=== PATIENT | female | born 1960 | race Caucasian/White ===

== ENCOUNTER 2016-08-17 07:49 | Observation (INO) | payer OTHER ==
[~2016-08-17] VITALS: Ht 162.6 cm; Wt 43.1 kg
[~2016-08-17 07:49] MED LIST: ALBU8.5H2 IH; ALPR2TAB2 PO; AZIT-21 PO; BUDE10.2 IH; BUDE10.22 IH; CEFD300C3 PO; CEPH500C PO; CIPR-225 PO; CLON1TAB3 PO; CLON2TAB2 PO; CYCL10TA9 PO; DIVA500T15 PO; DULO60CA6 PO; GABA-488 PO; GABA-490 PO; GABAPENTIN; GUAI118L10 PO; GUAN2TAB12 PO; HYDR-3720 PO; HYDR-3816 PO; HYDR-757 PO; HYOS0.1216 PO; IBP600T1 PO; IBUP800T26 PO; LEVO500T69 PO; LEVO500T80 PO; MIRT30TA6 PO; MIRT30TA8 PO; NAPR-243 PO; OXYC10TA7 PO; PANT20TA3 PO; PANT40TA2 PO; PRD20T PO; PRED20TA PO; PREG25CA PO; RISP1TAB3 PO; SUCR1ORA5 PO; TIOT18CA2 IH; TIZA4CAP PO; TRAM-21 PO
[2016-08-17] MEDS ORDERED: NS IV 1000 ML 1,000 ML IV ONE ×2 (08:08→09:41)
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
[2016-08-17] MEDS ORDERED: ONDANSETRON 4 MG/2 ML (SDV) Z0FRAN IVP ONE ×3 (08:45→11:30)
--- NOTE | 2016-08-17 08:59 | Diagnostic Imaging Report ---
INDICATION: Cough and congestion. PA and lateral views of the chest are obtained with comparison made study of 02/15/2016. FINDINGS: Overall heart size and pulmonary vascularity are within normal limits. There is no pneumothorax or consolidation. Multiple old bilateral rib fractures are stable in appearance. IMPRESSION: No acute abnormality or adverse change is identified. Dictated by: Dictated on workstation # [id number]
[2016-08-17 09:03] LABS: BASOPHILS % (AUTO) 0 % (0-10); EOSINOPHILS % (AUTO) 0 % (0-10); LYMPHOCYTES # (AUTO) 1.6 X 10^3 (1.0-4.0); LYMPHOCYTES % (AUTO) 12 % (12-44); MEAN CORPUSCULAR HEMOGLOBIN 29 PG (25-34); MEAN CORPUSCULAR HGB CONC 33 G/DL (32-36); MEAN CORPUSCULAR VOLUME 88 FL (80-99); MEAN PLATELET VOLUME 10.3 FL (7.4-10.4); MONOCYTES # (AUTO) 0.9 X 10^3 (0.0-1.0); MONOCYTES % (AUTO) 7 % (0-12); NEUTROPHILS # (AUTO) 10.4 X 10^3 (1.8-7.8); NEUTROPHILS % (AUTO) 80 % (42-75); PLATELET COUNT 342 10^3/uL (130-400); RED BLOOD COUNT 5.37 10^6/uL (4.35-5.85); RED CELL DISTRIBUTION WIDTH 14.5 % (10.0-14.5)
[2016-08-17 09:31] LABS: ALANINE AMINOTRANSFERASE 21 U/L (0-55); ALBUMIN 4.1 G/DL (3.2-4.5); ANION GAP 12 MMOL/L (5-14); ASPARTATE AMINO TRANSFERASE 23 U/L (5-34); BILIRUBIN,TOTAL 0.5 MG/DL (0.1-1.0); BLOOD UREA NITROGEN 16 MG/DL (7-18); BUN/CREATININE RATIO 19; CALCIUM 9.7 MG/DL (8.5-10.1); CARBON DIOXIDE 24 MMOL/L (21-32); CHLORIDE 104 MMOL/L (98-107); CREATININE SERUM 0.85 MG/DL (0.60-1.30); GFR ESTIMATED > 60; GLUCOSE 96 MG/DL (70-105); POTASSIUM 3.9 MMOL/L (3.6-5.0); SODIUM 140 MMOL/L (135-145); TOTAL PROTEIN 7.4 G/DL (6.4-8.2); hs C REACTIVE PROTEIN 0.43 MG/DL (0.00-0.50)
[2016-08-17 10:24] LABS: KETONES,URINE 3+ (NEGATIVE); LEUKOCYTE ESTERASE ,URINE 2+ (NEGATIVE); NITRITE,URINE NEGATIVE (NEGATIVE); PH,URINE 6 (5-9); PROTEIN,URINE 2+ (NEGATIVE); UROBILINOGEN,URINE 4 MG/DL (NORMAL)
[2016-08-17 10:39] LABS: BILIRUBIN,URINE 1+ (NEGATIVE)
[2016-08-17] MEDS ORDERED: cefTRIAXone INJECTION 1,000 MG in NORMAL SALINE (BAXTER MINI) 50 ML IV ONE (11:15)
[2016-08-17 13:00] VITALS: BP 121/83
[2016-08-17] MEDS ORDERED: ONDANSETRON 4 MG/2 ML (SDV) Z0FRAN IV PRN (13:00)
[2016-08-17] MEDS ORDERED: CATHETER FLUSH 10 ML SYR IV PRN (13:00)
[2016-08-17] MEDS: NS IV 1000 ML 1,000 ML IV SCH ×2 (13:44→23:52)
[2016-08-17] MEDS ORDERED: MUCINEX PO (14:33)
[2016-08-17] MEDS ORDERED: METO10TA3 PO (14:33)
[2016-08-17] MEDS ORDERED: HYDR-700 PO (14:33)
[2016-08-17] MEDS ORDERED: MIRT30TA6 PO (14:33)
[2016-08-17] MEDS ORDERED: MULT-884 PO (14:33)
[2016-08-17] MEDS ORDERED: PANT40TA3 PO (14:33)
[2016-08-17] MEDS ORDERED: TR1C15 TP (14:33)
[2016-08-17 16:48] VITALS: BP 123/66
[2016-08-17] MEDS: clonazePAM 1 MG (KlonoPIN) TAB PO SCH ×2 (17:40→21:25)
[2016-08-17 20:17] VITALS: BP 131/74
[2016-08-18 00:30] VITALS: BP 137/76
[2016-08-18 04:30] VITALS: BP 119/66
[2016-08-18 05:05] LABS: BASOPHILS % (AUTO) 0 % (0-10); EOSINOPHILS % (AUTO) 0 % (0-10); LYMPHOCYTES # (AUTO) 1.6 X 10^3 (1.0-4.0); LYMPHOCYTES % (AUTO) 17 % (12-44); MEAN CORPUSCULAR HEMOGLOBIN 29 PG (25-34); MEAN CORPUSCULAR HGB CONC 33 G/DL (32-36); MEAN CORPUSCULAR VOLUME 90 FL (80-99); MEAN PLATELET VOLUME 10.1 FL (7.4-10.4); MONOCYTES # (AUTO) 0.8 X 10^3 (0.0-1.0); MONOCYTES % (AUTO) 8 % (0-12); NEUTROPHILS # (AUTO) 6.8 X 10^3 (1.8-7.8); NEUTROPHILS % (AUTO) 74 % (42-75); PLATELET COUNT 271 10^3/uL (130-400); RED BLOOD COUNT 4.43 10^6/uL (4.35-5.85); RED CELL DISTRIBUTION WIDTH 14.4 % (10.0-14.5); WHITE BLOOD COUNT 9.2 10^3/uL (4.3-11.0)
[2016-08-18 05:30] LABS: ALANINE AMINOTRANSFERASE 18 U/L (0-55); ALBUMIN 3.4 G/DL (3.2-4.5); ANION GAP 10 MMOL/L (5-14); ASPARTATE AMINO TRANSFERASE 26 U/L (5-34); BILIRUBIN,TOTAL 0.4 MG/DL (0.1-1.0); BLOOD UREA NITROGEN 9 MG/DL (7-18); BUN/CREATININE RATIO 13; CALCIUM 8.5 MG/DL (8.5-10.1); CARBON DIOXIDE 22 MMOL/L (21-32); CHLORIDE 111 MMOL/L (98-107); CREATININE SERUM 0.68 MG/DL (0.60-1.30); GFR ESTIMATED > 60; GLUCOSE 70 MG/DL (70-105); POTASSIUM 3.9 MMOL/L (3.6-5.0); SODIUM 143 MMOL/L (135-145); TOTAL PROTEIN 6.1 G/DL (6.4-8.2)
[2016-08-18 05:41] LABS: BAND NEUTROPHILS 0 %; BASOPHILS % (MANUAL) 1 %; EOSINOPHILS % (MANUAL) 1 %; LYMPHOCYTES % (MANUAL) 12 %; NEUTROPHILS % (MANUAL) 81 %
[2016-08-18 08:00] VITALS: BP 127/68
[2016-08-18] MEDS ORDERED: cefTRIAXone 1 GM/NS 50 ML IVPB IV SCH ×2 (09:00)
[2016-08-18] MEDS: NS IV 1000 ML 1,000 ML IV SCH (09:00)
[2016-08-18] MEDS: clonazePAM 1 MG (KlonoPIN) TAB PO SCH (09:53)
[2016-08-18] MEDS ORDERED: CIPR-225 PO (10:49)
--- NOTE | 2016-08-18 10:55 | Discharge Instructions ---
Discharge [facility] Discharge Medications New, Converted or Re-Newed RX: Transmitted to Pharmacy New Medications: Ciprofloxacin HCl (Cipro) 500 Mg Tablet 500 MG PO BID #10 Ref 0 TAB Continued Medications: Budesonide/Formoterol Fumarate (Symbicort 160-4.5 Mcg Inhaler) 10.2 Gm Hfa.aer.ad 2 PUFF IH BID INHALER Clonazepam (Clonazepam) 1 Mg Tablet 1 MG PO QID TAB Hydroxyzine HCl (Hydroxyzine HCl) 25 Mg Tablet 25 MG PO TID PRN ITCHING Hyoscyamine Sulfate (Hyoscyamine Sulfate) 0.125 Mg Tablet 0.125 MG PO BID LAST FILLED 06/11/16 #90 TAB Metoclopramide HCl (Metoclopramide HCl) 10 Mg Tablet 10 MG PO DAILY LAST FILLED 06/09/16 #60 Mirtazapine (Mirtazapine) 30 Mg Tablet 15-30 MG PO HS TAKES 1/2-1 OF A (30 MG) TABLET PRN SLEEP Multivits,Ca,Minerals/Iron/FA (Women's Daily Caplet) 1 Each Tablet 1 TAB PO DAILY TAB Pantoprazole Sodium (Pantoprazole Sodium) 40 Mg Tablet.dr 40 MG PO DAILY Risperidone (Risperidone) 1 Mg Tablet 1 MG PO BID TAB Tiotropium [place] (Spiriva) 1 Inh Aerp 1 CAP IH DAILY INHALER Triamcinolone Acet (Triamcinolone Acetonide) 15 Gm Cr TP BID PRN ITCHING ([Mucinex]) 1 TAB PO DAILY Patient Instructions Goal/Follow Up Appt: [place] 08/28 at 8:20 at [facility] Patient Instructions: Start with clear liquids at home. You can advance your diet if you are not vomiting or nauseated. Return to The Hospital For: dizziness, decreased urination Activity & Diet Discharge Diet: No Restrictions Activity as Tolerated: Yes Copy Copies To 1: ELIZ SALES APRN, MD Aug 18, 2016 10:55
--- NOTE | 2016-08-18 10:57 | Short Stay Summary ---
HPI History of Present Illness: Patient presented to ER with complaints of mild cough and fever, states she also cannot keep anything down for the past few days. Tactile fever and chills. Has had nausea and vomiting as well. She was treated with IVF and antiemetics in ER, but she continue to vomit and so was admitted for observation for 24h as well as continued IVF administration. Source: patient Exam Limitations: no limitations Date seen by provider: Aug 18, 2016 Attending Physician Eliz Hendrix MD PCP [facility] Consult Date of Admission Aug 17, 2016 at 11:55 am Home Medications Home Medications Reviewed patient Home Medication Reconciliation Form Allergies Coded Allergies: Penicillins (Unverified Allergy, Unknown, 02/17/16) codeine (Unverified Allergy, Unknown, 02/16/15) BGE-Dgtyva-Zkmhtr Hx Patient Social History Alcohol Use: Denies Use Recreational Drug Use: No Smoking Status: Former Smoker Former smoker/When Quit: Oct 09, 2014 Type Used: Cigarettes Recent Foreign Travel: No Contact w/other who traveled: No Recent Hopitalizations: No Recent Infectious Disease Expo: No Physical Abuse Screen: No Sexual Abuse: No Immunizations Up To Date Tetanus Booster (TDap): Less than 5yrs Date of Pneumonia Vaccine: Jun 02, 2012 Date of Influenza Vaccine: May 20, 2016 Family Medical History Significant Family History: No Pertinent Family Hx Family History: DIVERTICULITIS G8 BROTHER G8 SISTER FH: diverticulitis FH: ovarian cancer 19 MOTHER (OVARIAN AND BREAST CANCER) Hypertension 19 MOTHER DAUGHTER OVARIAN Respiratory disorder 19 MOTHER (EMPHYSEMA AND COPD) Review of Systems ([facility]) Constitutional: no symptoms reported All Other Systems Reviewed Negative Unless Noted: Yes Physical Exam-([facility]) Physical Exam Vital Signs VS - Last 72 Hours, by Label 08/17/16 08/17/16 08/17/16 08/17/16 08:24 12:40 13:00 16:48 Temp 97.9 97.9 98.6 99.1 Pulse 102 90 90 95 Resp 20 18 18 18 B/P 131/99 121/83 123/66 Pulse Ox 95 95 93 90 O2 Delivery Room Air Room Air 08/17/16 08/17/16 08/18/16 08/18/16 20:17 20:30 00:30 04:30 Temp 99.6 98.9 99.1 Pulse 86 96 84 Resp 18 18 20 B/P 131/74 137/76 119/66 Pulse Ox 94 92 94 O2 Delivery Room Air Room Air Nasal Cannula Nasal Cannula O2 Flow Rate 2.00 2.00 08/18/16 08/18/16 08:00 09:00 Temp 98.9 Pulse 89 Resp 18 B/P 127/68 Pulse Ox 91 O2 Delivery Nasal Cannula Room Air O2 Flow Rate 1.00 Capillary Refill : Less Than 3 Seconds General Appearance: WD/WN no apparent distress HEENT: PERRL/EOMI normal ENT inspection pharynx normal Neck: non-tender full range of motion supple normal inspection Respiratory: lungs clear normal breath sounds no respiratory distress no accessory muscle use Cardiovascular: regular rate, rhythm no edema no gallop no JVD no murmur Gastrointestinal: normal bowel sounds non tender soft no organomegaly Back: normal inspection Extremities: normal range of motion non-tender normal inspection no pedal edema no calf tenderness normal capillary refill 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 Her vomiting gradually abated overnight. She was able to tolerate clear liquids the day of discharge and requested release from the hospital. She will follow up with her PCP for further care. Lola to finish the course of abx for her UTI. Clinical Quality Measures DVT/VTE Risk/Contraindication: Risk Factor Score Per Nursin RFS Level Per Nursing on Admit: 1=Low/No VTE PPX Copy Copies To 1: ELIZ SALES APRN, MD Aug 18, 2016 10:57
[2016-08-18 12:16] VITALS: BP 127/68
== END 2016-08-18 10:49 | disposition home or self-care (01) ==
LOC: EDUNIT# 07:49 → ER 07:51 → 4TH 11:55 → UNDOADMOB 11:55 → 4TH 12:30 → UNDODISOB 08-18 12:28
PROVIDERS: ADMIT Pediatrics; ATTEND Pediatrics
DX: R11.2 Nausea with vomiting, unspecified (principal); N39.0 Urinary tract infection, site not specified; J44.9 Chronic obstructive pulmonary disease, unspecified; K21.9 Gastro-esophageal reflux disease without esophagitis
CPT/HCPCS: 36415; 71020; 80053; 81000; 85007; 85025; 85027; 86141; 87088; 96361; 96365; 96375; 96376; G0378

== ENCOUNTER 2016-10-18 14:42 | Day surgery (SDC) | payer MEDICARE, OTHER ==
[~2016-10-18] VITALS: Ht 160 cm; Wt 37.2 kg
[~2016-10-18 14:42] MED LIST changes: +HYDR-700 PO; +METO10TA3 PO; +MUCINEX PO; +MULT-884 PO; +PANT40TA3 PO; +TR1C15 TP
[2016-10-18] MEDS ORDERED: ONDANSETRON 4 MG/2 ML (SDV) Z0FRAN IVP ONE (16:00)
[2016-10-18] MEDS ORDERED: LACTATED RINGERS 1,000 ML IV ONE (16:00)
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
[2016-10-18 16:29] LABS: BASOPHILS % (AUTO) 0 % (0-10); EOSINOPHILS % (AUTO) 0 % (0-10); LYMPHOCYTES # (AUTO) 2.1 X 10^3 (1.0-4.0); LYMPHOCYTES % (AUTO) 16 % (12-44); MEAN CORPUSCULAR HEMOGLOBIN 28 PG (25-34); MEAN CORPUSCULAR HGB CONC 33 G/DL (32-36); MEAN CORPUSCULAR VOLUME 86 FL (80-99); MEAN PLATELET VOLUME 10.1 FL (7.4-10.4); MONOCYTES % (AUTO) 7 % (0-12); NEUTROPHILS % (AUTO) 76 % (42-75); PLATELET COUNT 331 10^3/uL (130-400); RED BLOOD COUNT 5.59 10^6/uL (4.35-5.85); RED CELL DISTRIBUTION WIDTH 14.3 % (10.0-14.5); WHITE BLOOD COUNT 13.2 10^3/uL (4.3-11.0)
[2016-10-18 16:51] LABS: ALANINE AMINOTRANSFERASE 20 U/L (0-55); ALBUMIN 4.1 G/DL (3.2-4.5); AMYLASE 152 U/L (25-125); ANION GAP 11 MMOL/L (5-14); ASPARTATE AMINO TRANSFERASE 16 U/L (5-34); BILIRUBIN,TOTAL 0.5 MG/DL (0.1-1.0); BLOOD UREA NITROGEN 13 MG/DL (7-18); BUN/CREATININE RATIO 15; CARBON DIOXIDE 29 MMOL/L (21-32); CHLORIDE 103 MMOL/L (98-107); CREATININE SERUM 0.88 MG/DL (0.60-1.30); GFR ESTIMATED > 60; GLUCOSE 92 MG/DL (70-105); LIPASE 17 U/L (8-78); POTASSIUM 3.8 MMOL/L (3.6-5.0); SODIUM 143 MMOL/L (135-145); TOTAL PROTEIN 7.6 G/DL (6.4-8.2)
[2016-10-18] MEDS ORDERED: IOHEXOL 350 MG/ML 100 ML (OMNIPAQUE 350) VIAL IV ONE (17:00)
[2016-10-18] MEDS ORDERED: NS 100 ML (IVPB) BAG IV ONE (17:00)
[2016-10-18 19:05] VITALS: BP 114/82
--- NOTE | 2016-10-18 19:09 | Diagnostic Imaging Report ---
INDICATION: Nausea for several months, generalized abdominal pain. DISCUSSION: AP view of the chest and supine and upright views of the pelvis were obtained, comparison with chest x-ray 08/17/2016. Old bilateral rib fractures are stable. Stable normal heart size. No focal consolidation, pleural fluid, or pneumothorax. No pneumatosis or pneumoperitoneum. Unremarkable nonobstructive bowel gas pattern. No acute osseous abnormality identified. IMPRESSION: 1. Negative chest. 2. Normal bowel gas pattern. Dictated by: Dictated on workstation # [id number]
--- NOTE | 2016-10-18 19:16 | Diagnostic Imaging Report ---
PROCEDURE: CT abdomen and pelvis with contrast. TECHNIQUE: Multiple contiguous axial images were obtained through the abdomen and pelvis after administration of intravenous contrast. INDICATION: Nausea and vomiting for several months. COMPARISON: 02/17/2016. DISCUSSION: Patchy groundglass opacities within the left lung base are concerning for pneumonia. There appears to be solid debris within the distal esophagus, incompletely viewed. The esophageal mass or stricture cannot be excluded. Recommend clinical correlation. The pancreas, spleen, liver, and adrenal glands are unremarkable. The gallbladder is not visualized, likely surgically absent. Kidneys appear within normal limits bilaterally. The abdominal aorta is normal in caliber. There are multiple thickwalled nondilated small bowel loops present diffusely throughout the abdomen which is nonspecific though likely representing enteritis. Mild constipation is noted. No obstruction, pneumatosis, pneumoperitoneum. No ascites or pathologically enlarged lymph nodes are identified. No acute osseous abnormality identified. IMPRESSION: 1. Nondilated thickwalled small bowel loops, possible enteritis. 2. There appears to be ingested food lodged within the distal esophagus which is incompletely viewed. An underlying esophageal mass or stricture cannot be excluded. Recommend direct visualization and clinical correlation. 3. Patchy opacities within the left lung base, concerning for pneumonia. 4. Constipation. Dictated by: Dictated on workstation # [id number]
[2016-10-18 19:19] LABS: BILIRUBIN,URINE NEGATIVE (NEGATIVE); KETONES,URINE NEGATIVE (NEGATIVE); LEUKOCYTE ESTERASE ,URINE 2+ (NEGATIVE); NITRITE,URINE NEGATIVE (NEGATIVE); PH,URINE 7 (5-9); PROTEIN,URINE 2+ (NEGATIVE); UROBILINOGEN,URINE 1 MG/DL (NORMAL)
[2016-10-18 21:00] VITALS: BP 126/70
[2016-10-18] MEDS ORDERED: ONDANSETRON 4 MG/2 ML (SDV) Z0FRAN IV PRN (22:30)
[2016-10-18] MEDS: NS W/KCL 20 MEQ/L 1,000 ML IV SCH (22:35)
[2016-10-18] MEDS ORDERED: cefTRIAXone 1 GM (ROCEPHIN) VIAL ONE (22:42)
[2016-10-18] MEDS ORDERED: NS (IVPB) 50 ML ONE (22:42)
[2016-10-18] MEDS ORDERED: cefTRIAXone INJECTION 1,000 MG in NS (IVPB) 50 ML IV SCH (22:43)
[2016-10-18] MEDS: METOCLOPRAMIDE INJ 10 MG/2 ML (REGLAN) IV SCH ×2 (23:42→23:43)
[2016-10-19] VITALS: BP 101/63
[2016-10-19] MEDS ORDERED: LORazepam INJ 2 MG/ML (ATIVAN) VIAL IVP PRN (00:15)
[2016-10-19] MEDS ORDERED: PROMETHAZINE INJ 25 MG/ML (PHENERGAN) AMP IVP PRN (00:15)
[2016-10-19] MEDS ORDERED: GLUCAGON EMERGENCY 1 MG/KIT IJ ONE (00:15)
[2016-10-19 04:00] VITALS: BP 107/61
[2016-10-19 05:19] LABS: BASOPHILS % (AUTO) 0 % (0-10); EOSINOPHILS % (AUTO) 1 % (0-10); LYMPHOCYTES % (AUTO) 28 % (12-44); MEAN CORPUSCULAR HEMOGLOBIN 29 PG (25-34); MEAN CORPUSCULAR HGB CONC 33 G/DL (32-36); MEAN CORPUSCULAR VOLUME 88 FL (80-99); MEAN PLATELET VOLUME 10.3 FL (7.4-10.4); MONOCYTES # (AUTO) 0.5 X 10^3 (0.0-1.0); MONOCYTES % (AUTO) 8 % (0-12); NEUTROPHILS # (AUTO) 4.3 X 10^3 (1.8-7.8); NEUTROPHILS % (AUTO) 63 % (42-75); PLATELET COUNT 281 10^3/uL (130-400); RED BLOOD COUNT 4.53 10^6/uL (4.35-5.85); RED CELL DISTRIBUTION WIDTH 14.2 % (10.0-14.5); WHITE BLOOD COUNT 6.9 10^3/uL (4.3-11.0)
[2016-10-19] MEDS: NS W/KCL 20 MEQ/L 1,000 ML IV SCH ×2 (05:32→10:59)
[2016-10-19 05:45] LABS: ALANINE AMINOTRANSFERASE 18 U/L (0-55); ALBUMIN 3.2 G/DL (3.2-4.5); ANION GAP 10 MMOL/L (5-14); ASPARTATE AMINO TRANSFERASE 21 U/L (5-34); BILIRUBIN,TOTAL 0.4 MG/DL (0.1-1.0); BLOOD UREA NITROGEN 11 MG/DL (7-18); BUN/CREATININE RATIO 16; CALCIUM 8.8 MG/DL (8.5-10.1); CARBON DIOXIDE 24 MMOL/L (21-32); CHLORIDE 109 MMOL/L (98-107); CREATININE SERUM 0.69 MG/DL (0.60-1.30); GFR ESTIMATED > 60; GLUCOSE 77 MG/DL (70-105); POTASSIUM 4.1 MMOL/L (3.6-5.0); SODIUM 143 MMOL/L (135-145); TOTAL PROTEIN 5.7 G/DL (6.4-8.2)
[2016-10-19 08:00] VITALS: BP 122/73
[2016-10-19] MEDS ORDERED: GABA-490 PO (08:35)
[2016-10-19] MEDS ORDERED: GUAI600T43 PO (08:42)
[2016-10-19] MEDS ORDERED: PROM25TA14 PO (08:42)
[2016-10-19] MEDS ORDERED: PROC10TA PO (08:42)
[2016-10-19] MEDS ORDERED: ALBU2.5V4 IH (08:43)
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
[2016-10-19] MEDS ORDERED: proPOfol 200 MG/20 ML (DIPRIVAN) VIAL IV ONE (09:27)
[2016-10-19] MEDS ORDERED: HURRICAINE EXT TUBE (BENZOCAINE) ONE (09:28)
[2016-10-19] MEDS ORDERED: NS IV 500 ML 500 ML ONE (09:29)
[2016-10-19] MEDS ORDERED: NS IV 500 ML 500 ML IV PRN (09:30)
[2016-10-19] MEDS ORDERED: clonazePAM 1 MG (KlonoPIN) TAB PO PRN (09:45)
[2016-10-19] MEDS ORDERED: RT-ALBUTEROL SULF 2.5 MG/3 ML PRE-MIX VIAL IH PRN (09:45)
[2016-10-19] MEDS ORDERED: HURRICAINE EXT TUBE (BENZOCAINE) XX PRN (10:00)
[2016-10-19] MEDS ORDERED: MIDAZOLAM 2 MG/2 ML (VERSED) VIAL ONE (10:08)
--- NOTE | 2016-10-19 10:23 | Occ Therapy Progress Note ---
Therapy Progress Note Order received for OT eval and treat. Chart review completed. Attempted evaluation at 1020. RN reports pt out of room for endoscopy procedure. Will attempt evaluation this afternoon. HANNAH HER OT Oct 19, 2016 10:23
--- NOTE | 2016-10-19 10:30 | Progress Note-Post Operative ---
Post-Operative Progess Note Pre-Operative Diagnosis food particulate esophagus, intractable nausea vomiting Post-Operative Diagnosis food bolus obstructing distal esophagus, distal esophageal stricture Post-Op Procedure Note Date of Procedure: Oct 19, 2016 Name of Procedure: egd with removal distal espophagus food bolus Procedure Note/Findings see note Anesthesia Type per home companion Estimated blood loss (mL): none Specimen(s) collected none SHAHRZAD MCKEON DO Oct 19, 2016 10:30 am
[2016-10-19] MEDS ORDERED: SUCRALFATE 1 GM (CARAFATE) TAB PO SCH (11:00)
--- NOTE | 2016-10-19 11:44 | Speech Therapy Progress Note ---
Therapy Progress Note Speech pathology consult received and chart reviewed. The speech pathologist visited with the patient's RN prior to completing bedside swallow evaluation. Per RN, the swallow evaluation can be cancelled as the patient's dysphagia was a result of an obstructed distal esophagus with food particles. The speech pathologist recommended a re-consult if signs/symptoms of aspiration are observed. Thank you for this consult. BOYD JOSÉ Oct 19, 2016 11:43
--- NOTE | 2016-10-19 11:52 | OPERATIVE REPORT ---
PROCEDURE PHYSICIAN: SHAHRZAD QUEEN DATE OF PROCEDURE: 10/19/2016 PREOPERATIVE DIAGNOSES: 1. Food particulate in the esophagus. 2. Intractable nausea and vomiting. POSTOPERATIVE DIAGNOSES: 1. Food bolus obstructing distal esophagus. 2. Distal esophageal stricture. PROCEDURES: EGD with removal of distal esophagus food bolus. SURGEON: Dr. Queen. ANESTHESIA: Per PROFESSOR OF MECHANICAL ENGINEERING. ESTIMATED BLOOD LOSS: None. COMPLICATIONS: None. INDICATIONS: The patient is a 56-year-old female who was admitted with intractable nausea and vomiting. A CT scan demonstrated a food bolus in the distal esophagus. She has had previous food bolus stuck before. She understands risks and benefits of the procedure and wishes to proceed with procedure. Consent signed on the chart. PROCEDURE: The patient was taken to the endoscopy suite, placed in left lateral recumbent position. Timeout was performed. The scope was then inserted the mouth down the esophagus, which had a lot of food particulate present. It was white, flaky and multiple small pieces. Using the scope, it was continued be suctioned. Using a net, the food particulate was attempted to be withdrawn after netting it in the esophagus. This was continued be removed with the scope continuing to be reinserted. Larger pieces were then encountered as we went more distally, therefore, a 3 prong grasper was then attempted to be used, but was unable to really grasp any of the pieces of food. The scope was able to be advanced past the larger particulates and then through the GE junction and into the stomach. There was a little bit of a slight stricture present, but the scope was able to be passed without any difficulty. There was lots of edema and swelling in this area as well. The scope was then retracted back into the distal esophagus and the food particulate was then able to be pushed down into the stomach. Once all the particulates were pushed into the stomach, the scope was then advanced into the stomach through the pylorus into the first part of the duodenum, which there was no polyps, masses or ulcerations. The scope was then slowly retracted back to the stomach where it was also retroflexed noting the GE junction seemed to be tight around the scope. There did not appear to be any hiatal hernia. The scope was then returned to its normal position, slowly withdrawn again noting some slight stricture at the distal esophagus, lots of edema and some erythema. The scope was continued to be slowly retracted noting no other foods particulate in the esophagus, slowly retracted until completely removed. The patient tolerated the procedure well without any complications. She was taken to recovery room in stable condition. RECOMMENDATIONS: The patient will be on a Protonix twice a day and Carafate. She will stay on a liquid diet. I would consider patient be evaluated by GI, with one question motility of the esophagus with also stricture. Would recommend repeat scope in 3 to 6 weeks either by GI or myself to reevaluate the area. Job ID: [id number] Dictated Date: 10/19/2016 10:35:21 Brush Polisher Date: 10/19/2016 11:38:37 / lacey
[2016-10-19 12:00] VITALS: BP 130/82
--- NOTE | 2016-10-19 12:49 | Discharge Instructions ---
Discharge [facility] Discharge Medications Continued Medications: Albuterol Sulfate (Albuterol Sulfate) 2.5 Mg/3 Ml Vial.neb 2.5 MG IH Q6H PRN SHORTNESS OF BREATH EA Budesonide/Formoterol Fumarate (Symbicort 160-4.5 Mcg Inhaler) 10.2 Gm Hfa.aer.ad 2 PUFF IH BID INHALER Clonazepam (Clonazepam) 1 Mg Tablet 1 MG PO QID PRN ANXIETY TAB Gabapentin (Gabapentin) 400 Mg Capsule 400 MG PO TID CAP Guaifenesin (Mucinex) 600 Mg Tab.er.12h 600 MG PO DAILY TAB Hyoscyamine Sulfate (Hyoscyamine Sulfate) 0.125 Mg Tablet 0.125 MG PO TID PRN STOMACH UPSET TAB Multivits,Ca,Minerals/Iron/FA (Women's Daily Caplet) 1 Each Tablet 1 TAB PO DAILY TAB Pantoprazole Sodium (Pantoprazole Sodium) 40 Mg Tablet.dr 40 MG PO DAILY LAST FILLED #30 09-04-17 TAB Promethazine HCl (Promethazine Tablet) 25 Mg Tablet 25 MG PO QID PRN NAUSEA TAB Risperidone (Risperidone) 1 Mg Tablet 1 MG PO BID LAST FILLED #60 2-2-17 TAB Tiotropium [place] (Spiriva) 1 Inh Aerp 1 CAP IH DAILY INHALER Triamcinolone Acet (Triamcinolone Acetonide 0.1% Cream) 15 Gm Cr TP BID PRN ITCHING EA Discontinued Medications: Prochlorperazine Maleate (Prochlorperazine Maleate) 10 Mg Tablet 10 MG PO TID PRN NAUSEA TAB Patient Instructions Goal/Follow Up Appt: Follow-up with [place] Otoole on 10/26 at 1:20 pm. Return to The [facility] For: Difficulty swallowing, inability to keep down liquids Activity & Diet Discharge Diet: Liquid Diet (for 3 days, then advance slowly, be sure to chew food very well) Copy Copies To 1: MARY Do BETHANY N MD Oct 19, 2016 12:49 pm
--- NOTE | 2016-10-19 12:50 | Short Stay Summary ---
HPI History of Present Illness: Patient presented to ER with about one week history of sensation of food stuck deep in her chest. She states she has had this happen before and was able to clear it, so she waited for a while to see if it would get better. However, she got worse and she was feeling short of breath and dizzy so she came in. Source: patient Attending Physician Adam Kern MD PCP Ksenia,[facility] Date of Admission Oct 18, 2016 at 7:40 pm Home Medications Home Medications Reviewed patient Home Medication Reconciliation Form Allergies Coded Allergies: Penicillins (Unverified Allergy, Unknown, 02/17/16) codeine (Unverified Allergy, Unknown, 02/16/15) FTD-Tejmpy-Iwbqrd Hx Patient Social History Alcohol Use: Past History Recreational Drug Use: No Smoking Status: Former Smoker Former smoker/When Quit: Jul 13, 2016 Type Used: Cigarettes Recent Foreign Travel: No Contact w/other who traveled: No Recent Hopitalizations: Yes (Sep 2016, UTI ) Recent Infectious Disease Expo: No Physical Abuse Screen: No Sexual Abuse: No Immunizations Up To Date Tetanus Booster (TDap): Less than 5yrs Date of Pneumonia Vaccine: Jun 02, 2012 Date of Influenza Vaccine: May 20, 2016 Past Medical History PMHx: COPD Anxiety Depression PTSD Migraines Recurrent esophageal obstructions with food bolus SurgHx: Tonsillectomy BTL Orthopedic- nerve/tendon damage repair in right fore arm Family Medical History Significant Family History: No Pertinent Family Hx Review of Systems ([facility]) Constitutional: no symptoms reported EENTM: no symptoms reported Respiratory: see HPI Cardiovascular: no symptoms reported Gastrointestinal: abdominal pain Genitourinary: no symptoms reported Musculoskeletal: no symptoms reported Psychiatric/Neurological: Anxiety Depressed Reviewed Test Results Reviewed Test Results Lab Laboratory Tests Test 10/18/16 16:24 10/18/16 19:13 10/19/16 05:00 Range/Units Alanine Aminotransferase (ALT/SGPT) 20 18 0-55 U/L Albumin 4.1 3.2 3.2-4.5 G/DL Alkaline Phosphatase 79 69 40-136 U/L Amylase Level 152 H 25-125 U/L Anion Gap 11 10 5-14 MMOL/L Aspartate Amino Transf (AST/SGOT) 16 21 5-34 U/L BUN/Creatinine Ratio 15 16 Basophils # (Auto) 0.0 0.0 0.0-0.1 10^3/uL Basophils (%) (Auto) 0 0 0-10 % Blood Urea Nitrogen 13 11 7-18 MG/DL Calcium Level 10.0 8.8 8.5-10.1 MG/DL Carbon Dioxide Level 29 24 21-32 MMOL/L Chloride Level 103 109 H 98-107 MMOL/L Creatinine 0.88 0.69 0.60-1.30 MG/DL Eosinophils # (Auto) 0.0 0.0 0.0-0.3 10^3/uL Eosinophils (%) (Auto) 0 1 0-10 % Estimat Glomerular Filtration Rate > 60 > 60 Glucose Level 92 77 70-105 MG/DL Hematocrit 48 40 35-52 % Hemoglobin 15.8 13.0 11.5-16.0 G/DL Lipase 17 8-78 U/L Lymphocytes # (Auto) 2.1 2.0 1.0-4.0 X 10^3 Lymphocytes (%) (Auto) 16 28 12-44 % Mean Corpuscular Hemoglobin 28 29 25-34 PG Mean Corpuscular Hemoglobin Concent 33 33 32-36 G/DL Mean Corpuscular Volume 86 88 80-99 FL Mean Platelet Volume 10.1 10.3 7.4-10.4 FL Monocytes # (Auto) 1.0 0.5 0.0-1.0 X 10^3 Monocytes (%) (Auto) 7 8 0-12 % Neutrophils # (Auto) 10.0 H 4.3 1.8-7.8 X 10^3 Neutrophils (%) (Auto) 76 H 63 42-75 % Platelet Count 331 281 130-400 10^3/uL Potassium Level 3.8 4.1 3.6-5.0 MMOL/L Red Blood Count 5.59 4.53 4.35-5.85 10^6/uL Red Cell Distribution Width 14.3 14.2 10.0-14.5 % Sodium Level 143 143 135-145 MMOL/L Total Bilirubin 0.5 0.4 0.1-1.0 MG/DL Total Protein 7.6 5.7 L 6.4-8.2 G/DL White Blood Count 13.2 H 6.9 4.3-11.0 10^3/uL Urine Amorphous Sediment MOD BANDAR URATES H /LPF Urine Bacteria TRACE /HPF Urine Bilirubin NEGATIVE NEGATIVE Urine Casts NONE /LPF Urine Clarity CLEAR Urine Color YELLOW Urine Crystals PRESENT H /LPF Urine Culture Indicated YES Urine Glucose (UA) NEGATIVE NEGATIVE Urine Ketones NEGATIVE NEGATIVE Urine Leukocyte Esterase 2+ H NEGATIVE Urine Mucus LARGE H /LPF Urine Nitrite NEGATIVE NEGATIVE Urine Protein 2+ H NEGATIVE Urine RBC NONE /HPF Urine RBC (Auto) NEGATIVE NEGATIVE Urine Specific [place] 1.015 L 1.016-1.022 Urine Squamous Epithelial Cells 10-25 H /HPF Urine Urobilinogen 1 NORMAL MG/DL Urine WBC 10-25 H /HPF Urine pH 7 5-[address] abdomen 10/18: "IMPRESSION: 1. Nondilated thickwalled small bowel loops, possible enteritis. 2. There appears to be ingested food lodged within the distal esophagus which is incompletely viewed. An underlying esophageal mass or stricture cannot be excluded. Recommend direct visualization and clinical correlation. 3. Patchy opacities within the left lung base, concerning for pneumonia. 4. Constipation." Physical Exam-([facility]) Physical Exam Vital Signs VS - Last 72 Hours, by Label 10/18/16 10/18/16 10/18/16 10/18/16 15:51 19:05 20:52 21:00 Temp 99.0 98.8 97.0 Pulse 87 84 88 84 Resp 18 18 20 20 B/P 120/94 114/82 126/70 Pulse Ox 96 95 96 O2 Delivery Room Air Room Air 10/19/16 10/19/16 10/19/16 00:00 04:00 08:00 Temp 98.9 98.8 98.2 Pulse 73 87 81 Resp 16 16 20 B/P 101/63 107/61 122/73 Pulse Ox 99 92 93 O2 Delivery Room Air Room Air Room Air Capillary Refill : Less Than 3 Seconds General Appearance: no apparent distress other (thin) Respiratory: lungs clear normal breath sounds Cardiovascular: regular rate, rhythm no murmur Gastrointestinal: normal bowel sounds non tender soft Neurologic/Psychiatric: alert other (flat affect) Skin: normal color warm/dry Short Stay Diagnosis Discharge Diagnosis-Short Stay Admission Diagnosis 1. Esophageal obstruction with food bolus Final Discharge Diagnosis 1. Esophageal obstruction with food bolus- Dr. Queen performed EGD with food bolus removal this am, recommended clear liquid diet for 3 days Conclusion Plan See final discharge diagnosis Clinical Quality Measures DVT/VTE Risk/Contraindication: Risk Factor Score Per Nursin RFS Level Per Nursing on Admit: 2=Moderate Copy Copies To 1: MARY Do BETHANY N MD Oct 19, 2016 12:50 pm
[2016-10-19] MEDS ORDERED: GABAPENTIN 400 MG (NEURONTIN) CAP PO SCH (13:00)
--- NOTE | 2016-10-19 13:26 | Occ Therapy Progress Note ---
Therapy Progress Note Attempted OT evaluation at 1315. Pt in bed, declined to participate in therapy at this time secondary to fatigue. Pt states her throat is hurting and she just wants to take a nap. Will attempt 10/20/16. 1, visit HANNAH HER OT Oct 19, 2016 13:26
[2016-10-19 18:22] VITALS: BP 130/82
[2016-10-19] MEDS ORDERED: RT-ADVAIR HFA 115/21 MCG PER PUFF IH SCH (20:00)
[2016-10-19] MEDS ORDERED: PANTOPRAZOLE 40 MG/10 ML (PROTONIX) VIAL IV SCH (21:00)
[2016-10-19] MEDS ORDERED: risperiDONE 1 MG (RisperDAL) TAB PO SCH (21:00)
[2016-10-20] MEDS ORDERED: MULTIVIT W/MINERALS TAB (THERAGRAN M) PO SCH (07:00)
[2016-10-20] MEDS ORDERED: UMECLIDINIUM BROMIDE (INCRUSE ELLIPTA) 7'S IH SCH (08:00)
[2016-10-20] MEDS ORDERED: PANTOPRAZOLE 40 MG (PROTONIX) TAB PO SCH (09:00)
== END 2016-10-19 16:25 | disposition home or self-care (01) ==
LOC: EDUNIT# 14:42 → ER 14:44 → UNDOADMOB 19:40 → 4TH 19:40 → SDC 21:00 → UNDODISOB 10-19 16:25 → SDC 10-19 16:25
PROVIDERS: ATTEND Family Medicine
DX: T18.128A Food in esophagus causing other injury, initial encounter (principal); K22.2 Esophageal obstruction; E86.0 Dehydration; N39.0 Urinary tract infection, site not specified; J44.9 Chronic obstructive pulmonary disease, unspecified; F43.10 Post-traumatic stress disorder, unspecified; K59.00 Constipation, unspecified; Z79.899 Other long term (current) drug therapy; Z87.891 Personal history of nicotine dependence
CPT/HCPCS: 36415; 74022; 74177; 80053; 81000; 82150; 83690; 85025; 87088; 96361; 96374; 99285; G0378

== ENCOUNTER 2016-11-30 05:49 | Outpatient (CLI) | payer MEDICARE ==
[~2016-11-30] VITALS: Ht 160 cm; Wt 35.8 kg
[~2016-11-30 05:49] MED LIST changes: +ALBU2.5V4 IH; +GUAI600T43 PO; +PROC10TA PO; +PROM25TA14 PO
[2016-11-30] MEDS ORDERED: PROC10TA PO (15:52)
[2016-11-30] MEDS ORDERED: CYPR4TAB PO (15:52)
== END 2016-11-30 15:53 ==
LOC: PREOP 05:49
PROVIDERS: ATTEND Surgery
DX: Z01.818 Encounter for other preprocedural examination (principal); R13.10 Dysphagia, unspecified

== ENCOUNTER 2016-12-01 10:02 | Day surgery (SDC) | payer MEDICARE ==
[~2016-12-01] VITALS: Ht 160 cm; Wt 35.8 kg
[2016-12-01] VITALS (7 sets, daily range): BP systolic 89–133; BP diastolic 36–85
[~2016-12-01 10:02] MED LIST changes: +CYPR4TAB PO
[2016-12-01] MEDS ORDERED: proPOfol 200 MG/20 ML (DIPRIVAN) VIAL IV ONE (10:06)
[2016-12-01] MEDS ORDERED: NS IV 1000 ML 1,000 ML IV STA (10:08)
[2016-12-01] MEDS ORDERED: MIDAZOLAM 2 MG/2 ML (VERSED) VIAL IVP PRN (10:15)
[2016-12-01] MEDS ORDERED: FLUMAZENIL (ROMAZICON) 0.1 MG/ML 5 ML VIAL INJ PRN (10:15)
[2016-12-01] MEDS ORDERED: NALOXONE 0.4 MG/ML 1 ML (NARCAN) VIAL IVP PRN (10:15)
[2016-12-01] MEDS ORDERED: fentaNYL INJECTION 100 MCG/2 ML AMP IVP PRN (10:15)
--- NOTE | 2016-12-01 10:18 | Progress Note-Pre Operative ---
Pre-Operative Progress Note H&P Reviewed The H&P was reviewed, patient examined and no changes noted. Date H&P Reviewed: Dec 01, 2016 Time H&P Reviewed: 10:17 Pre-Operative Diagnosis: dysphagia, esophageal stricture SHAHRZAD MCKEON DO Dec 01, 2016 10:18 am
[2016-12-01] MEDS ORDERED: HURRICAINE EXT TUBE (BENZOCAINE) ONE (10:25)
[2016-12-01] MEDS ORDERED: HURRICAINE EXT TUBE (BENZOCAINE) XX ONE (11:00)
[2016-12-01] MEDS ORDERED: NS (IVPB) 0 ML ONE (11:40)
[2016-12-01] MEDS ORDERED: ceFAZolin 1,000 MG (ANCEF) VIAL ONE (11:40)
[2016-12-01 11:57] LABS: MEAN PLATELET VOLUME 9.9 FL (7.4-10.4); RED BLOOD COUNT 5.11 10^6/uL (4.35-5.85); RED CELL DISTRIBUTION WIDTH 14.8 % (10.0-14.5); WHITE BLOOD COUNT 7.2 10^3/uL (4.3-11.0)
[2016-12-01] MEDS ORDERED: NS IV 1000 ML 1,000 ML ONE (12:04)
--- NOTE | 2016-12-01 12:05 | Discharge Inst-Simple/Standard ---
Discharge Inst-Standard Patient Instructions/Follow Up Plan of Care/Instructions/FU: Follow up with DR. Queen after Dr. Granados's procedure. Activity as Tolerated: Yes Discharge Diet: Other Diet (Clear liquids until gastrotomy tube is placed in. ) TRISTEN BRASWELL APRN Dec 01, 2016 12:04
[2016-12-01 12:09] LABS: PROTHROMBIN TIME PATIENT 12.7 SEC (12.2-14.7)
[2016-12-01] MEDS ORDERED: CLINDAMYCIN INJECTION 300 MG in NS (IVPB) 50 ML IV ONE (12:45)
[2016-12-01] MEDS ORDERED: NS IV 1000 ML 1,000 ML IV SCH (12:45)
--- NOTE | 2016-12-01 13:58 | Progress Note-Post Operative ---
Post-Operative Progess Note Surgeon (s)/Antenna Machine Operator (s) Surgeon SHAHRZAD MCKEON DO Antenna Machine Operator: na Pre-Operative Diagnosis dysphagia, esophageal stricture Post-Operative Diagnosis esophageal stricture Post-Op Procedure Note Date of Procedure: Dec 01, 2016 Name of Procedure Performed: esophagoscopy Description of the Procedure: esophagoscopy visualizing stricture Findings of the Procedure esophageal stricture Anesthesia Type per mda Estimated blood loss (mL): none Specimen(s) collected/removed none SHAHRZAD MCKEON DO Dec 01, 2016 13:58
[2016-12-01] MEDS ORDERED: HEParin (CATH LAB) 2,000 ML IV ONE (14:16)
[2016-12-01] MEDS ORDERED: MIDAZOLAM 5 MG/5 ML (VERSED) VIAL ONE (14:31)
[2016-12-01] MEDS ORDERED: fentaNYL INJECTION 100 MCG/2 ML AMP ONE (14:31)
--- NOTE | 2016-12-01 16:15 | Pre-Op Note & Conscious Sedat ---
Pre-Operative Progress Note H&P Reviewed The H&P was reviewed, patient examined and no changes noted. Date H&P Reviewed: Dec 01, 2016 Time H&P Reviewed: 14:00 Pre-Op Diagnosis: esophagus stricture Conscious Sedation Pre-Proced Time Reviewed: 14:00 ASA Class: 3 Airway Mallampati Classification: ([place] appropriate class) I. II. III, IV Lungs Heart ASA score ASA 1: a normal healthy patient ASA 2: a patient with a mild systemic disease (mid diabetes, controlled hypertension, obesity ASA 3: a patient with a severe systemic disease that limits activity (angina , COPD, prior Myocardial infarction) ASA 4: a patient with an incapacitating disease that is a constant threat to life (CHF, renal failure) ASA 5: a moribund patient not expected to survive 24 hrs. (ruptured aneurysm) ASA 6: a declared brain patient whose organs are being harvested. For emergent operations, add the letter E after the classification Grade 3 Sedation Plan: Analgesia Note The patient is an appropriate candidate to undergo the planned procedure, sedation, and anesthesia. The patient immediately re-assessed prior to indication. DIVYA KAM MD Dec 01, 2016 16:15
--- NOTE | 2016-12-01 16:18 | Radiology Progress Note ---
Progress Note-Radiology Progress Note post distal esophageal dilatation of 12mm for distal esophageal stricture. DIVYA KAM MD Dec 01, 2016 16:18
[2016-12-01] MEDS ORDERED: ceFAZolin 1 GM/NS 50 ML IVPB IV ONE ×2 (16:30)
--- NOTE | 2016-12-01 18:16 | Diagnostic Imaging Report ---
EXAMINATION: Crossing obstruction in the esophagus followed by balloon dilatation under fluoroscopic guidance. INDICATION: Distal esophageal obstruction. The patient has had an upper endoscopy with Dr. Queen for stricture treatment. The scope reached a point of obstruction in the distal esophagus and could not pass further. Current history and physical and other medical records are reviewed prior to the procedure. CONSENT: Informed consent was obtained from the patient. The risks, benefits, potential complications and alternatives were reviewed and all questions answered to the patient's satisfaction. The patient's vital signs, cardiac rhythm, and pulse oximetry with observed throughout the procedure by qualified nursing personnel. Sedation/medications: Versed 4 mg IV, Fentanyl 75 mcg IV for a total sedation time of 1 hour and 15 minutes. Fluoroscopy time utilized is 16 minutes. CONTRAST: 40 cc of Omnipaque 300 was utilized. 300 mg of clindamycin intravenously was administered prior to the procedure. PROCEDURE: Initially, a 5 [place] catheter with a J-wire combination was introduced carefully through the nostril into the esophagus with position of the catheter advanced into the distal esophagus easily. The wire did not pass into the stomach however. Contrast injection in the distal esophagus demonstrates a dilatation of the esophagus with no passage of contrast into the stomach compatible with complete obstruction at the gastroesophageal junction. Over a wire, a 6 [place] sheath was placed, 45 cm length and advanced into the distal esophagus. Then an angled glidewire was utilized with an angled multipurpose 5 [place] catheter and after multiple attempts of negotiating the point of obstruction at the gastroesophageal junction, successful crossing of the obstruction into the stomach was obtained and confirmed with contrast injection. The length of the obstruction is about 4 cm. This was treated with serial balloon angioplasty initially with 8 by 40 balloon and followed by 12 x 40 balloon. After angioplasty to 12 mm, the patient started to complain of pain. At this point she was under conscious sedation. Contrast injection after the balloon angioplasty is suggestive of recoil with the channel approximately 5 mm in caliber seen. This channel is relatively smooth in contour and could improve after resolution of edema. The patient should be given only clear liquids. The patient tolerated the procedure well with no immediate complications. FINDINGS: Complete obstruction of the gastroesophageal junction with dilatation of the esophagus. There is a recoil noted after dilatation of the involved area with a 12 mm balloon. IMPRESSION: 1. Complete obstruction of the gastroesophageal junction. 2. After crossing the obstruction, the balloon dilatation up to 12 mm was performed with suggestion of post dilatation recoil to the stricture, about 5 mm in caliber. This might improve with resolving mucosal edema and should be dilated further subsequently. Dictated by: Dictated on workstation # [id number]
--- NOTE | 2016-12-02 09:25 | OPERATIVE REPORT ---
DATE OF SERVICE: 12/01/2016 PREOPERATIVE DIAGNOSES: 1. Dysphagia. 2. Esophageal stricture. POSTOPERATIVE DIAGNOSIS: Esophageal stricture. PROCEDURE: Esophagoscopy. SURGEON: Shahrzad Queen DO ANESTHESIA: Per MDA. ESTIMATED BLOOD LOSS: None. COMPLICATIONS: None. INDICATION: The patient is a 56-year-old female with worsening dysphagia. She had a recent previous EGD for a food bolus for which the scope at that time was able to be inserted into the stomach, but did note somewhat of a slight esophageal stricture, but lots of inflammation present. Therefore it was discussed with the patient to come in for repeat EGD and possible evaluation. The patient has had worsening symptoms again and she has had significant weight loss. The patient understands the risks and benefits of procedure and wishes to proceed with the procedure. Consent was signed in the chart. PROCEDURE: The patient was taken to the endoscopy suite, placed in the left lower recumbent position, timeout was performed, scope was inserted into the mouth and began to be placed on the esophagus. The patient had a drop in her O2 saturation which the scope had to be removed. The patient's oxygenation level improved. We attempted to scope again. So the scope was inserted into the mouth, down the esophagus. There was quite a bit of old food particulate present. The scope was able to be passed all the way down to the distal portion of the esophagus where there was a significant narrowing. This narrowing was approximately 1-2 mm in diameter. It was not able to be visualized passed this area of stricture at this time. The balloon dilator was not able to be passed safely through this under endoscopic visualization, therefore, it was decided to seek alternative methods. The scope was then slowly retracted back. I just noted food particulate present with the esophagus. The scope was retracted until completely removed. The patient tolerated the procedure well without any complications. She was taken to the recovery room in stable condition. RECOMMENDATIONS: A long discussion with Dr. Granados, interventional radiologist, was discussed about interventional radiology dilation or gastrostomy tube placement. We discussed and he feels that he may be possibly able to place a wire passed this stricture and demonstrate it to be in the stomach with fluoroscopy and dilate this area. If unable to, he does not have to have the equipment in order to do a gastrostomy tube placement. The patient previously stated that she did not want gastrostomy tube placed. If she changes her mind, we will try to arrange with [facility]. The patient and family friend was discussed all findings. Further recommendations pending interventional radiology procedures. Job ID: [id number] DocumentID: [id number] Dictated Date: 12/01/2016 14:02:55 Landscape Architect And Planner Date: 12/02/2016 04:58:21 Dictated By: SHAHRZAD QUEEN DO
== END 2016-12-01 17:00 | disposition home or self-care (01) ==
LOC: ENDO 10:02
PROVIDERS: ATTEND Surgery
DX: K22.2 Esophageal obstruction (principal)
CPT/HCPCS: 36415; 85027; 85610; 85730

== ENCOUNTER 2019-11-07 17:37 | Emergency (ER) | payer MEDICARE, OTHER ==
[~2019-11-07] VITALS: Ht 160 cm; Wt 68.0 kg
[~2019-11-07 17:37] MED LIST changes: +CLON1TAB13 PO; -CYPR4TAB PO; +CYPR4TAB41 PO; +HYDR-34 PO; -HYDR-3816 PO; +HYOS-20 PO; -HYOS0.1216 PO; +MIRT-48 PO; -MIRT30TA8 PO; -PROC10TA PO; +PROC10TA10 PO
[2019-11-07 17:45] VITALS: BP 0/0
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
== END 2019-11-07 18:00 | disposition left against medical advice (07) ==
LOC: EDUNIT# 17:37 → ER 17:42
DX: R45.1 Restlessness and agitation (principal); S61.219A Laceration without foreign body of unspecified finger without damage to nail, initial encounter; X58.XXXA Exposure to other specified factors, initial encounter; J43.9 Emphysema, unspecified; B19.20 Unspecified viral hepatitis C without hepatic coma; M54.9 Dorsalgia, unspecified; F41.9 Anxiety disorder, unspecified; F32.9 Major depressive disorder, single episode, unspecified; F43.10 Post-traumatic stress disorder, unspecified; Z88.0 Allergy status to penicillin; Z88.5 Allergy status to narcotic agent; Z85.41 Personal history of malignant neoplasm of cervix uteri; Z87.891 Personal history of nicotine dependence; Z79.899 Other long term (current) drug therapy
CPT/HCPCS: 99283

== ENCOUNTER → 2020-06-05 | Outpatient (CLI) | payer MEDICARE ==
[~2020-06-05] MED LIST changes: +PANT20TA18 PO; -PANT20TA3 PO; -PANT40TA3 PO; +PANT40TA52 PO
== END ==
LOC: LAB 10:10
PROVIDERS: ATTEND Physician Assistant
DX: M87.052 Idiopathic aseptic necrosis of left femur (principal)
CPT/HCPCS: 36415; 80323

== ENCOUNTER → 2022-05-05 | Outpatient (CLI) | payer MEDICARE ==
[~2022-05-05] MED LIST changes: +LEVO-55 PO; -LEVO500T80 PO; -METO10TA3 PO; +MIRT-69 PO; -MIRT30TA6 PO; +MTC10T PO; -RISP1TAB3 PO; +RISP1TAB93 PO
== END ==
LOC: RAD 13:30
PROVIDERS: ATTEND Nurse Practitioner
DX: Z96.643 Presence of artificial hip joint, bilateral (principal); Z78.0 Asymptomatic menopausal state

== ENCOUNTER 2022-09-17 15:02 | Emergency (ER) | payer MEDICARE, MEDICAID ==
[2022-09-17] MEDS ORDERED: CLIN-144 PO ×2 (15:59→16:03)
[2022-09-17] MEDS ORDERED: DOXY100T2 PO ×2 (15:59→16:03)
[2022-09-17] MEDS ORDERED: TETANUS,DIPTH,PERTUSS P/F (BOOSTRIX) 0.5 ML VIAL IM ONE (16:00)
[2022-09-17] MEDS ORDERED: MUPI22OI2 TP ×2 (16:00→16:03)
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
[2022-09-17 16:16] VITALS: BP 136/84
== END 2022-09-17 16:19 | disposition home or self-care (01) ==
LOC: ER 15:02 → EDUNIT# 15:02 → ER 16:19
DX: S51.851A Open bite of right forearm, initial encounter (principal); F17.200 Nicotine dependence, unspecified, uncomplicated; Z88.1 Allergy status to other antibiotic agents; W54.0XXA Bitten by dog, initial encounter
CPT/HCPCS: 90471; 90715